=== PATIENT | male | born 1975 | race Caucasian/White ===

== ENCOUNTER 2019-07-18 18:03 | Emergency (ER) | payer OTHER, MEDICAID ==
[2019-07-18] MEDS ORDERED: ASPIRIN 81 MG TABLET, CHEWABLE PO ONE (18:37)
--- NOTE | 2019-07-18 18:39 | ER Document Report ---
ED Medical Screen (RME) - General Chief Complaint: Chest Pain Stated Complaint: CHEST PAIN, SHOULDER PAIN Time Seen by Provider: 07/18/19 18:28 Primary Care Provider: HADLEY DAIGLE MD [Primary Care Provider] - Follow up as needed - [facility] Notes: 07/18/19 18:38 44-year-old male with a history of gastric sleeve bypass presents to the emergency room with sudden onset chest pain for the last 2 hours that squeezing, pressure that is radiated to his right side and between his right shoulder blade. Does report some pain to his left jaw. Prior to his gastric sleeve surgery a year ago, he did have a stress test and echocardiogram which per his report were negative. Did not take a baby aspirin today. Pain is progressive. Denies any nausea vomiting diarrhea, lightheadedness, dizziness, headache, fevers chills. I have greeted and performed a rapid initial assessment of this patient. A comprehensive ED assessment and evaluation of the patient, analysis of test results and completion of the medical decision making process will be conducted by additional ED providers. PHYSICAL EXAMINATION: GENERAL: Well-appearing, well-nourished and in no acute distress. HEAD: Atraumatic, normocephalic. EYES: Pupils equal round extraocular movements intact, conjunctiva are normal. ENT: Nares patent NECK: Normal range of motion LUNGS: No respiratory distress Musculoskeletal: Normal range of motion NEUROLOGICAL: Normal speech, normal gait. PSYCH: Normal mood, normal affect. SKIN: Warm, Dry, normal turgor, no rashes or lesions noted. - Related Data Allergies/Adverse Reactions: Penicillins Allergy (Severe, Verified 07/18/19 18:33) Past Medical History GI Medical History: Reports: Hx Gastroesophageal Reflux Disease - Immunizations Hx Diphtheria, Pertussis, Tetanus Vaccination: Yes - 2001 Physical Exam - Vital signs Vitals: Temp Pulse BP Pulse Ox 98.1 F 97 155/99 H 100 07/18/19 18:34 07/18/19 18:34 07/18/19 18:34 07/18/19 18:34 Course - Vital Signs Vital signs: Temp Pulse Resp BP Pulse Ox 98.1 F 97 155/99 H 100 07/18/19 18:34 07/18/19 18:34 07/18/19 18:34 07/18/19 18:34 Doctor's Discharge - Discharge Referrals: HADLEY DAIGLE MD [Primary Care Provider] - Follow up as needed
[2019-07-18 19:05] LABS: ABSOLUTE BASOPHILS # (AUTO) 0.1 10^3/uL (0.0-0.2); ABSOLUTE EOSINOPHILS # (AUTO) 0.1 10^3/uL (0.0-0.6); ABSOLUTE LYMPHOCYTES (AUTO) 2.4 10^3/uL (0.5-4.7); ABSOLUTE MONOCYTES (AUTO) 0.9 10^3/uL (0.1-1.4); ABSOLUTE NEUT (AUTO) 7.3 10^3/uL (1.7-8.2); BASOPHILS % (AUTO) 0.7 % (0-2); EOSINOPHILS % (AUTO) 1.2 % (0-6); HEMOGLOBIN 15.3 g/dL (13.5-17.0); MEAN CORPUSCULAR HEMOGLOBIN 28.5 pg (27.0-33.4); MEAN CORPUSCULAR HGB CONC 34.1 g/dL (32.0-36.0); MEAN CORPUSCULAR VOLUME 84 fl (80-97); MONOCYTES % (AUTO) 8.5 % (3-13); PLATELET COUNT 259 10^3/uL (150-450); RED BLOOD COUNT 5.39 10^6/uL (4.35-5.55); RED CELL DISTRIBUTION WIDTH 12.6 % (11.5-14.0); SEGMENTED NEUTROPHILS % (AUTO) 67.6 % (42-78); TOTAL CELLS COUNTED % (AUTO) 100 %; WHITE BLOOD COUNT 10.8 10^3/uL (4.0-10.5)
--- NOTE | 2019-07-18 19:06 | RADIOLOGY REPORT (SQ) ---
EXAM DESCRIPTION: CHEST SINGLE VIEW COMPLETED DATE/TIME: 07/18/2019 6:55 pm REASON FOR STUDY: chest pain COMPARISON: None. EXAM PARAMETERS: NUMBER OF VIEWS: One view. TECHNIQUE: Single frontal radiographic view of the chest acquired. RADIATION DOSE: NA LIMITATIONS: None. FINDINGS: LUNGS AND PLEURA: No opacities, masses or pneumothorax. No pleural effusion. MEDIASTINUM AND HILAR STRUCTURES: No masses. Contour normal. HEART AND VASCULAR STRUCTURES: Heart normal in size. Normal vasculature. BONES: No acute findings. HARDWARE: None in the chest. OTHER: No other significant finding. IMPRESSION: NO ACUTE RADIOGRAPHIC FINDING IN THE CHEST. TECHNICAL DOCUMENTATION: JOB ID: [id number] [email or web address]- All Rights Reserved Reading location - IP/workstation name: [email or web address]
[2019-07-18 19:28] LABS: ALBUMIN 4.8 g/dL (3.5-5.0); ALKALINE PHOSPHATASE 81 U/L (38-126); ANION GAP 13 (5-19); ASPARTATE AMINO TRANSFERASE 26 U/L (17-59); BILIRUBIN,DIRECT 0.2 mg/dL (0.0-0.4); BILIRUBIN,TOTAL 0.4 mg/dL (0.2-1.3); BLOOD UREA NITROGEN 20 mg/dL (7-20); CALCIUM 10.2 mg/dL (8.4-10.2); CARBON DIOXIDE 30 mmol/L (22-30); CHLORIDE 100 mmol/L (98-107); CREATINE KINASE 209 U/L (55-170); GLUCOSE 95 mg/dL (75-110); POTASSIUM 4.2 mmol/L (3.6-5.0); TOTAL PROTEIN 8.1 g/dL (6.3-8.2)
[2019-07-18 19:40] LABS: CREATINE KINASE MB 4.47 ng/mL (<4.55)
[2019-07-18 19:42] LABS: TROPONIN I < 0.012 ng/mL
[2019-07-18] MEDS ORDERED: FAMOTIDINE 20 MG TABLET PO ONE (21:50)
--- NOTE | 2019-07-18 21:53 | ER Document Report ---
ED General - General Chief Complaint: Chest Pain Stated Complaint: CHEST PAIN, SHOULDER PAIN Time Seen by Provider: 07/18/19 18:28 Primary Care Provider: HADLEY DAIGLE MD [NO LOCAL MD] - Follow up as needed Notes: Patient is a 44-year-old male that comes emergency department for chief complaint of chest pain. He states pain started 2 hours prior to arrival, which sharp, radiated from his right shoulder blade to the front of his chest mainly on the right side. He states the pain was very sharp, he was given aspirin 324 mg on arrival and now his symptoms have almost completely resolved. He denies nausea or vomiting, fever or chills, however he states that he has had a resolving cough and some right arm muscle soreness for the past several days. He denies shortness of breath. He denies injury. Past medical history of gastric sleeve and significant weight loss from this. He denies hypertension, diabetes, hyperlipidemia although he does have positive family history of cardiac disease. He states he had a negative stress test and negative echocardiogram within the past year in preparation for the gastric sleeve. TRAVEL OUTSIDE OF THE [place] IN LAST 30 DAYS: No - Related Data Allergies/Adverse Reactions: Penicillins Allergy (Severe, Verified 07/18/19 18:33) Past Medical History - General Information source: Patient - Social History Smoking Status: Former Smoker Chew tobacco use (# tins/day): No Frequency of alcohol use: None Drug Abuse: None Lives with: Family Family History: Reviewed & Not Pertinent Patient has suicidal ideation: No Patient has homicidal ideation: No GI Medical History: Reports: Hx Gastroesophageal Reflux Disease Past Surgical History: Reports: Hx Gastric Bypass Surgery - Immunizations Hx Diphtheria, Pertussis, Tetanus Vaccination: Yes - 2001 Review of Systems - Review of Systems Constitutional: See HPI EENT: No symptoms reported Cardiovascular: No symptoms reported Respiratory: No symptoms reported Gastrointestinal: No symptoms reported Genitourinary: No symptoms reported Male Genitourinary: No symptoms reported Musculoskeletal: See HPI Skin: No symptoms reported Hematologic/Lymphatic: No symptoms reported Neurological/Psychological: No symptoms reported Physical Exam - Vital signs Vitals: Temp Pulse BP Pulse Ox 98.1 F 97 155/99 H 100 07/18/19 18:34 07/18/19 18:34 07/18/19 18:34 07/18/19 18:34 - Notes Notes: GENERAL: Alert, interacts well. No acute distress. HEAD: Normocephalic, atraumatic. EYES: Pupils equal, round, and reactive to light. Extraocular movements intact. ENT: Oral mucosa moist, tongue midline. Oropharynx unremarkable. Airway patent. LUNGS: Clear to auscultation bilaterally, no wheezes, rales, or rhonchi. No respiratory distress. HEART: Regular rate and rhythm. No murmur ABDOMEN: Soft, non-tender. Non-distended. EXTREMITIES: Tenderness over the right posterior shoulder along the line of the scapula. Patient winces with palpation of these areas. No swelling or erythema. Pain is also worse with range of motion of the right shoulder. 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 BACK: No signs of trauma. No cervical, thoracic, lumbar midline tenderness. No saddle anesthesia, normal distal neurovascular exam. Moves all extremities in full range of motion. NEUROLOGICAL: Alert and oriented x3. Normal speech. Cranial nerves II through XII grossly intact. PSYCH: Normal affect, normal mood. SKIN: Warm, dry, normal turgor. No rashes or lesions noted. Course - Re-evaluation Re-evalutation: Patient initially irritable because of wait time but calmed down after I discussed his work-up and he did allow me to evaluate him. He does have specific and reproducible tenderness along the right scapular border, pain shoots into his shoulder and into his right anterior chest with range of motion of the right shoulder. No bruising, no deficit, physical exam is very unremarkable otherwise. Vital signs unremarkable. CBC, chemistry unremarkable. Both troponins negative. Patient was given famotidine because he received aspirin and he has a gastric sleeve. Chest x-ray unremarkable. I discussed these results with patient. Patient is very pleased with this, he states he feels it is definitely his right shoulder, he declines medication for this, he states he has a follow-up with his primary care provider tomorrow and he just wanted to be checked out today. Based on his evaluation I have a very low suspicion of ACS. I did discuss return precautions, patient did state appreciation and agreement. Stable at time of discharge. - Vital Signs Vital signs: Temp Pulse Resp BP Pulse Ox 98.1 F 83 169 H 135/91 H 100 07/18/19 23:04 07/18/19 23:04 07/18/19 23:04 07/18/19 23:04 07/18/19 21:19 - Laboratory Result Diagrams: 07/18/19 18:50 07/18/19 18:50 Laboratory results interpreted by me: 07/18/19 07/18/19 18:50 18:50 WBC 10.8 H Creatine Kinase 209 H - EKG Interpretation by Me Additional EKG results interpreted by me: EKG shows sinus tachycardia at a rate of 101, normal axis, QTC of 441, no T wave inversions or ST segment changes in consecutive leads Discharge - Discharge Clinical Impression: Chest pain Qualifiers: Chest pain type: unspecified Qualified Code(s): R07.9 - Chest pain, unspecified Right shoulder pain Qualifiers: Chronicity: acute Qualified Code(s): M25.511 - Pain in right shoulder Condition: Stable Disposition: HOME, SELF-CARE Additional Instructions: Your work-up today was negative. Your pain appears to be from your right shoulder and this appears to be musculoskeletal. Follow-up with primary care for additional evaluation and management. Return if you worsen including severe worsening pain, difficulty breathing, fever, passing out, or any other concerning symptoms. Referrals: HADLEY DAIGLE MD [NO LOCAL MD] - Follow up as needed
[2019-07-18 23:05] VITALS: BP 135/91
--- NOTE | 2019-07-19 07:52 | EKG REPORT ---
SEVERITY:- BORDERLINE ECG - SINUS TACHYCARDIA EARLY TRANSITION, CONSIDER OLD TRUE POST AR : Confirmed by: Antonio Guzman MD 19-Jul-2019 07:51:37
== END 2019-07-18 23:04 | disposition home or self-care (01) ==
LOC: ER 18:03
DX: R07.9 Chest pain, unspecified (principal); M25.511 Pain in right shoulder; R68.84 Jaw pain; Z98.84 Bariatric surgery status; Z87.891 Personal history of nicotine dependence
CPT/HCPCS: 36415; 71045; 80053; 82550; 82553; 84484; 85025; 93005; 93010; 99285

== ENCOUNTER → 2020-03-04 | Outpatient (CLI) | payer MEDICAID ==
--- NOTE | 2020-03-04 13:32 | RADIOLOGY REPORT (SQ) ---
EXAM DESCRIPTION: CT SINUSES FOR ENT IMAGES COMPLETED DATE/TIME: 03/04/2020 10:30 am REASON FOR STUDY: J32.9 CHRONIC SINUSITIS, UNSPECIFIED J32.9 CHRONIC SINUSITIS, UNSPECIFIED COMPARISON: None. TECHNIQUE: Noncontrast scanning through the paranasal sinuses using bone algorithm. Reconstructed MPR images reviewed. All images stored on PACS. Images acquired for image guided surgery. All CT scanners at this facility use dose modulation, iterative reconstruction, and/or weight based d osing when appropriate to reduce radiation dose to as low as reasonably achievable (ALARA). [facility]: Dose Right [facility]: CareDose [facility]: Dose Right [facility]: Teradose 4D [facility]: SkemA RADIATION DOSE: mGy. FINDINGS: NASAL PASSAGES: No discrete masses. Generalized polypoid thickening of mucosa. OSTEOMEATAL UNITS AND NASOFRONTAL DUCTS: Patent. MAXILLARY SINUSES: Minimal right polypoid mucosal thickening but no significant opacification. Maxill slim sinus outlets are patent. ETHMOID SINUSES: Well-pneumatized and clear. SPHENOID SINUSES: Well-pneumatized and clear. FRONTAL SINUSES: Diminutive, minimal right aeration. Non developed left frontal sinus. No fluid. MASTOID AIR CELLS: Clear. ORBITS: Normal and symmetrical. NASAL SEPTUM: Mild left nasal septal deviation and spurring. TEMPOROMANDIBULAR JOINTS: Normal. TURBINATES: No pneumatized turbinates. OTHER: No other significant findings. IMPRESSION: No significant sinus opacification. TECHNICAL DOCUMENTATION: JOB ID: [id number] Quality ID # [id number]: Final reports with documentation of one or more dose reduction techniques (e.g., Au tomated exposure control, adjustment of the mA and/or kV according to patient size, use of iterative reconstruction technique) 2010 [employer]- All Rights Reserved Reading location - IP/workstation name: [email or web address]
== END ==
LOC: RAD 10:10
PROVIDERS: ATTEND Otolaryngology
DX: J32.9 Chronic sinusitis, unspecified (principal)
CPT/HCPCS: 70486